=== PATIENT | female | born 1965 | race Caucasian/White ===

== ENCOUNTER 2016-09-10 20:24 | Emergency (ER) | payer OTHER ==
[~2016-09-10] VITALS: Ht 175.3 cm; Wt 130.0 kg
[~2016-09-10 20:24] MED LIST: ACET325S8 PR; CIPR500T4 PO; SUMA50TA2 PO; TRAM50 PO
[2016-09-10 20:27] VITALS: BP 154/89; PULSE 82; RESP 18; TEMP 97.9; O2SAT 99
[2016-09-10] MEDS ORDERED: IBUPROFEN PO (22:54)
[2016-09-10] MEDS ORDERED: oxyCODONE/ACETAMINOPHEN 5 MG/325 MG TAB PO ONE (23:15)
[2016-09-10] MEDS ORDERED: KETOROLAC TROMETHAMINE 60 MG/2 ML (IM) VIAL IM ONE (23:15)
[2016-09-10] MEDS ORDERED: IBUP-232 PO (23:18)
[2016-09-10] MEDS ORDERED: PERC5TAB12 PO (23:18)
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
--- NOTE | 2016-09-10 23:57 | RADRPT ---
EXAM DATE/TIME: 09/10/2016 23:38 [facility] COMPARISON: No previous studies available for comparison. INDICATIONS : Shoulder pain from moving a couch. MEDICAL HISTORY : None. SURGICAL HISTORY : None. ENCOUNTER: Initial ACUITY: 1 day PAIN SCORE: 0/10 LOCATION: Left shoulder FINDINGS: Multiple view examination of the left shoulder demonstrates no evidence of fracture or dislocation. The glenohumeral and acromioclavicular joints are maintained. There is normal range of motion betwee n internal and external rotation. Bony mineralization is normal. CONCLUSION: Normal examination for a patient of this age. Artem Sanon MD on September 10, 2016 at 23:55 Board Certified Radiologist. This report was verified electronically.
== END 2016-09-11 00:45 | disposition home or self-care (01) ==
LOC: NEPD 20:24
DX: S43.402A Unspecified sprain of left shoulder joint, initial encounter (principal); M54.2 Cervicalgia; J45.909 Unspecified asthma, uncomplicated; Z79.899 Other long term (current) drug therapy; Z72.0 Tobacco use; X50.0XXA Overexertion from strenuous movement or load, initial encounter
CPT/HCPCS: 73030; 96372; 99284; J1885

== ENCOUNTER 2017-05-24 19:12 | Emergency (ER) | payer OTHER ==
[~2017-05-24] VITALS: Ht 175.3 cm; Wt 115.0 kg
[~2017-05-24 19:12] MED LIST changes: -ACET325S8 PR; -CIPR500T4 PO; +IBUP-232 PO; +IBUPROFEN PO; +PERC5TAB12 PO; -SUMA50TA2 PO; -TRAM50 PO
[2017-05-24 19:26] VITALS: BP 140/78; PULSE 74; RESP 18; TEMP 97.6; O2SAT 99
[2017-05-24 22:12] VITALS: BP 147/89; PULSE 76; RESP 18; O2SAT 98
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
[2017-05-24] MEDS ORDERED: ONDANSETRON HCL 4 MG/2 ML VIAL IV PUSH ONE (23:00)
[2017-05-24] MEDS ORDERED: SODIUM CHLORID 0.9% 500 ML INJ 500 ML IV ONE (23:00)
[2017-05-24] MEDS ORDERED: KETOROLAC TROMETHAMINE 30 MG/ML (IVP) VIAL IV PUSH ONE (23:00)
--- NOTE | 2017-05-24 23:07 | RADRPT ---
EXAM DATE/TIME: 05/24/2017 22:55 [facility] COMPARISON: No previous studies available for comparison. INDICATIONS : Right flank and back pain x 1 week. ORAL CONTRAST: No oral contrast ingested. RADIATION DOSE: 22.54 CTDIvol (mGy) ; Patient body habitus MEDICAL HISTORY : None SURGICAL HISTORY : section. Tubal ligation. ENCOUNTER: Initial ACUITY: 1 week PAIN SCALE: 7/10 LOCATION: Right flank TECHNIQUE: Volumetric scanning of the abdomen and pelvis was performed. Using automated exposure control and ad justment of the mA and/or kV according to patient size, radiation dose was kept as low as reasonably achievable to obtain optimal diagnostic quality images. DICOM format image data is available electro nically for review and comparison. FINDINGS: LOWER LUNGS: The visualized lower lungs are clear. LIVER: Homogeneous density without lesion. There is no dilation of the biliary tree. No calcified gallston es. SPLEEN: Normal size without lesion. PANCREAS: Within normal limits. KIDNEYS: Normal in size and shape. There is no mass, stone, or hydronephrosis. ADRENAL GLANDS: Within normal limits. VASCULAR: There is no aortic aneurysm. BOWEL/MESENTERY: The stomach, small bowel, and colon demonstrate no acute abnormality. There is no free intraperitone al air or fluid. ABDOMINAL WALL: Within normal limits. RETROPERITONEUM: There is no lymphadenopathy. BLADDER: No wall thickening or mass. REPRODUCTIVE: Within normal limits. INGUINAL: There is no lymphadenopathy or hernia. MUSCULOSKELETAL: Within normal limits for patient age. CONCLUSION: 1. No acute findings. Specifically no renal calculi or obstructive uropathy. Mild constipation. Davin Sheikh MD on May 24, 2017 at 23:01 Board Certified Radiologist. This report was verified electronically.
[2017-05-24 23:21] LABS: AUTOMATED NEUTROPHIL # 5.8 TH/MM3 (1.8-7.7); BASOPHIL # 0.1 TH/MM3 (0-0.2); EOSINOPHIL # 0.2 TH/MM3 (0-0.4); HEMATOCRIT 37.8 % (35.0-46.0); HEMOGLOBIN 12.8 GM/DL (11.6-15.3); LYMPH % 32.4 % (9.0-44.0); LYMPHOCYTE # 3.3 TH/MM3 (1.0-4.8); MEAN CELL VOLUME 91.3 FL (80.0-100.0); MEAN CORPUSCULAR HEMOGLOBIN 30.8 PG (27.0-34.0); MEAN CORPUSCULAR HGB CONC 33.8 % (32.0-36.0); MEAN PLATELET VOLUME 10.7 FL (7.0-11.0); MONO % 6.6 % (0.0-8.0); MONOCYTE # 0.7 TH/MM3 (0-0.9); PLATELET COUNT 219 TH/MM3 (150-450); RED BLOOD COUNT 4.14 MIL/MM3 (4.00-5.30); RED CELL DISTRIBUTION WIDTH 13.7 % (11.6-17.2); WHITE BLOOD COUNT 10.1 TH/MM3 (4.0-11.0)
[2017-05-24 23:28] LABS: BACTERIA, URINE OCC /hpf; BILIRUBIN, URINE NEG (NEG); BLOOD, URINE MOD (NEG); GLUCOSE,URINE NEG (NEG); KETONE, URINE NEG (NEG); MUCUS URINE FEW /lpf (OCC); NITRITE,URINE NEG (NEG); PH, URINE 5.5 (5.0-8.5); SQUAMOUS EPITHELIAL CELL URINE 20 /hpf (0-5); URINE COLOR YELLOW (YELLW/STRAW); URINE LEUKOCYTE ESTERASE LARGE (NEG)
[2017-05-24 23:37] LABS: ALBUMIN 3.5 GM/DL (3.4-5.0); ALT (GPT) 21 U/L (10-53); AST (GOT) 21 U/L (15-37); BICARBONATE 26.6 MEQ/L (21.0-32.0); BLOOD UREA NITROGEN 12 MG/DL (7-18); C-REACTIVE PROTEIN LESS THAN 0.29 MG/DL (0.00-0.30); CALCIUM 8.7 MG/DL (8.5-10.1); CHLORIDE 112 MEQ/L (98-107); CREATININE 0.86 MG/DL (0.50-1.00); GLOMERULAR FILTRATION RATE 70 ML/MIN (>89); GLUCOSE,RANDOM 89 MG/DL (74-106); SODIUM (NA) 143 MEQ/L (136-145)
[2017-05-24 23:40] LABS: ALKALINE PHOSPHATASE 67 U/L (45-117); TOTAL BILIRUBIN ADULT 0.1 MG/DL (0.2-1.0); TOTAL PROTEIN 7.4 GM/DL (6.4-8.2)
[2017-05-24] MEDS ORDERED: cefTRIAXone INJ 1,000 MG in SODIUM CHLORIDE 0.9% INJ 100 ML IV ONE (23:45)
[2017-05-25] MEDS ORDERED: CIPR-9 PO (00:02)
[2017-05-25] MEDS ORDERED: TRAM50TA PO (00:02)
[2017-05-25] MEDS ORDERED: ACETAMINOPHEN 325 MG TAB PO ONE (01:45)
== END 2017-05-25 01:59 | disposition home or self-care (01) ==
LOC: NEPC 19:12
DX: N12 Tubulo-interstitial nephritis, not specified as acute or chronic (principal); J45.909 Unspecified asthma, uncomplicated; G89.29 Other chronic pain; M50.221 Other cervical disc displacement at C4-C5 level; M50.321 Other cervical disc degeneration at C4-C5 level; M51.27 Other intervertebral disc displacement, lumbosacral region; F17.210 Nicotine dependence, cigarettes, uncomplicated
CPT/HCPCS: 74176; 80053; 81001; 83690; 85025; 86140; 87086; 96374; 96375; 99284; J0696; J1885; J2405; J7040